=== PATIENT | female | born 1945 | race Caucasian/White ===

== ENCOUNTER → 2017-10-16 | Outpatient (CLI) | payer MEDICARE, OTHER ==
[~2017-10-16] MED LIST: ANAS1TAB34 PO; CALC-18 PO; CALC1TAB32 PO; DOC100 PO; GLU500 PO; HAWT565C PEG; IBAN150T6 PO; NAPR220C12 PO; PER PO; SIMV-49 PO; SIMV5TAB60 PO; VITA-324 PO; [UNRECOGNIZED DRUG - CODE] PO; [UNRECOGNIZED DRUG - CODE] PO
--- NOTE | 2017-10-16 15:58 | RADIOLOGY IMAGING REPORT ---
FACILITY: [facility] [place] PATIENT NAME: DIEUDONNE MCKEON : [id number] MR: [id number] V: [id number] EXAM DATE: ORDERING PHYSICIAN: CORKY SALAZAR TECHNOLOGIST: Beth Lester PROCEDURE:BILATERAL DIGITAL SCREENING MAMMOGRAM WITH CAD ASSISTED INTERPRETATION & 3D TOMOSYNTHESIS COMPARISON:Prior mammograms 10/10/16, 10/10/15, 10/06/14, 10/05/13, 10/02/12, 03/25/12. INDICATIONS:screening FINDINGS: Moderately dense fibroglandular tissue is seen throughout the breasts. The parenchymal pattern has remained stable allowing for difference in mammographic technique & patient positioning. Again notice the area of postsurgical scaring in the upper outer quadrant of the Left breast from prior lumpectomy. There is no demonstration of malignant appearing mass, malignant appearing calcifications or other secondary sign of malignancy in either breast. DIAGNOSTIC CATEGORY 2--BENIGN FINDING. RECOMMENDATIONS: ROUTINE MAMMOGRAM AND CLINICAL EVALUATION. IMPRESSION: BIRADS 2: Benign finding. No significant abnormality is seen. Dictated by: Analilia Arevalo M.D. on 10/16/2017 at 15:00 Transcribed by: JULISSA on 10/16/2017 at 15:22 Approved by: Analilia Arevalo M.D. on 10/16/2017 at 15:56 [facility]
== END ==
LOC: MAMO 01:38
PROVIDERS: ATTEND Internal Medicine Hematology
DX: Z12.31 Encounter for screening mammogram for malignant neoplasm of breast (principal)
CPT/HCPCS: 77063; 77067

== ENCOUNTER 2018-04-24 08:28 | Outpatient (RCR) | payer MEDICARE, OTHER ==
[~2018-04-24 08:28] MED LIST changes: -SIMV5TAB60 PO; +SIMV5TAB69 PO
[2018-04-24 08:33] VITALS: BP 139/82
--- NOTE | 2018-04-24 09:59 | [facility] ONCOLOGY NOTE ---
EVENT DATE: April 24, 2018 DIAGNOSES 1. Stage IA (pT1a, pN0, M0) left breast cancer. 2. Borderline hypercholesterolemia. 3. Osteopenia of the lumbar spine. CHIEF COMPLAINT The patient is here today for followup of her left breast cancer. ONCOLOGY HISTORY The patient is a very pleasant female with a history of stage IA breast cancer of the left breast, diagnosed in January,. Breast cancer was ER/ND positive, HER2/daniel 3+ by immunohistochemistry. She had a lumpectomy, followed by radiation and started endocrine therapy in May 2010 with Arimidex. Since our last office visit she had her yearly mammogram. She comes in for follow up. She is unaccompanied in the clinic. PRESENTATION Abnormal mammogram of the left breast done on 02/07/2010. DIAGNOSTIC EVALUATION On 02/16/2010 the patient had a left digital mammogram which showed two focal areas at 12 oclock position. PROCEDURES Stereotactic left breast biopsy done on 03/08/2010 and pathology came back positive for grade 2 out of 3 infiltrating ductal carcinoma completely excised. On 03/21/2010 the patient had an axillary sentinel lymph node biopsy of the left side, three lymph nodes were removed and were negative for metastasis. The patient also had left breast excision which came back positive for ductal carcinoma. Left breast excisional biopsy done 03/30/2010 came back for a biopsy cavity and negative for residual malignancy. PATHOLOGY Positive for a 0.5 cm invasive well differentiated ductal carcinoma, grade 1 out of 3 with negative margins, 3 sentinel lymph node were removed and were negative for metastasis. ER-positive, Pr-negative, HER2/daniel was 3+ by immunohistochemistry. Ki-67 was with a low expression. P53 was negative. STAGE Stage IA (pT1a, pN0, M0). TREATMENT 1. Adjuvant radiation therapy completed on 06/14/2010. The patient received 33 treatments. 2. Adjuvant hormonal therapy started on 06/22/2010. HISTORY OF PRESENT ILLNESS Patient is here today for followup of her left breast cancer, on extended adjuvant hormonal therapy with Arimidex. She is complaining of some hot flashes and some cough. She has pain in the shoulders and knees. She is weak, tired and fatigued. PAST MEDICAL HISTORY 1. New left breast cancer. 2. Borderline high cholesterol. PAST SURGICAL HISTORY 1. In November 1972: The patient had a tubal ligation. 2. In July 1998: The patient had a total hysterectomy and bilateral salpingo- oophorectomy for a fibroid and heavy bleeding. 3. In October 2005: The patient had a left hip replacement. 4. In February 2010: The patient had a left lumpectomy and left axillary sentinel lymph node biopsy. SOCIAL HISTORY The patient is . She has three children, two sons and one daughter. 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 She drinks about 12 drinks per year. She denies any abuse of tobacco or drugs. FAMILY HISTORY Mother had stomach cancer at age 72. Father had bladder cancer at 86. Fraternal grandmother had breast cancer, she does not know exactly what age. ALLERGIES NO KNOWN DRUG ALLERGIES. CURRENT MEDICATIONS 1. Anastrozole 1 mg daily. 2. Naproxen 220 mg as needed. 3. Calcium carbonate 500 mg daily. 4. Glycosamine sulfate 500 mg twice daily. 5. Vitamin D 2000 units daily. 6. Vitamin B complex one tablet daily. REVIEW OF SYSTEMS CONSTITUTIONAL: The patient has some hot flashes. HEENT: Ears: No tinnitus or hearing problem. Nose: No nasal discharge or epistaxis. Throat: No sore throat or mouth ulcers. Eyes: No diplopia or visual changes. RESPIRATORY: She has dry cough. CARDIOVASCULAR: No chest pain, orthopnea, or paroxysmal nocturnal dyspnea (PND). No edema. No palpitations. GASTROINTESTINAL: No nausea or vomiting. No diarrhea or constipation. No change in bowel movements. No heartburn or swallowing difficulties. No abdominal pain. No jaundice. No hematemesis, melena or rectal bleeding. GENITOURINARY: No hematuria or dysuria. MUSCULOSKELETAL: She has pain in the shoulders and knees. NEUROLOGICAL: No tingling or numbness in the hands or feet. No headaches or convulsions. HEMATOLOGIC/LYMPHATIC: She is weak, tired and fatigued. SKIN: No skin rash or lumps. PSYCHIATRIC: No anxiety or depression. PHYSICAL EXAMINATION GENERAL: Looks stable. Well-developed, well-nourished, and in no acute distress. VITAL SIGNS: Blood presently 139/82, pulse 66 per minute, respirations 16 per minute, temperature 97, pulse ox 94% on room air. HEENT: Head: Atraumatic. No sinus tenderness to palpation. Eyes: No icterus or conjunctivitis. Mouth and throat: No oral thrush or mucositis. NECK: Supple. No cervical or supraclavicular lymphadenopathy. LUNGS: Clear to auscultation and percussion bilaterally. HEART: Regular rate and rhythm. No gallops, murmurs, clicks or rubs. ABDOMEN: Soft and lax. No tenderness. No hepatosplenomegaly. No masses. EXTREMITIES: No cyanosis, clubbing or edema. LYMPHATICS: No peripheral lymphadenopathy. NEUROLOGICAL: Conscious, alert and oriented times three. No focal motor or sensory deficits. PSYCHIATRIC: Mood and affect appear normal. SKIN: No skin rash, bruise or purpuric eruption. DIAGNOSTIC DATA CBC showed a white count 7,000, hemoglobin 16.4, hematocrit 48.6%, platelets 269,000. Chem panel totally normal except BUN/creatinine ratio 32 and albumin/globulin ratio 2.6. CA 27-29 is normal at 26.1. He mammogram on October 16, 2017, was benign. ASSESSMENT 1. Stage IA (pT1a pN0 cM0) left breast cancer status post lumpectomy and left axillary lymph node dissection done March 21, 2010. Final pathology was positive for 0.5 cm invasive well-differentiated ductal carcinoma grade 1/3 with negative margins. Three sentinel lymph nodes were negative for metastasis. ER positive, ND negative. HER2/daniel 3+ by immunohistochemistry, which is positive. Patient finished adjuvant radiation therapy June 14, 2010. She started Arimidex as her hormonal therapy June 22, 2010, and she is tolerating treatment very well. Her breast cancer index for extended endocrine benefit showed high risk of late recurrence 8.3% between the years five to 10 with likelihood of benefit from extended endocrine therapy. Patient agreed to extend her hormonal therapy. I am planning to continue Arimidex 1 mg daily. She is due for her next mammogram September 2018. I will see her in a year with CBC, chem panel and CA 27-29. Her current CA 27-29 is normal at 26.1. 2. Osteopenia by DEXA scan. Her last DEXA scan on October 10, 2016, was stable. 3. Borderline hypercholesterolemia. PLAN 1. Continue Arimidex 1 mg daily for a total of 10 years. 2. Patient to return in one year with CBC, chemistry panel and CA 27-29. 3. Screening mammogram bilaterally, September 2018. 4. Patient to contact us for any new concern or complaints. [facility]
== END 2018-06-02 11:59 | disposition home or self-care (01) ==
LOC: ONC 08:28
PROVIDERS: ATTEND Internal Medicine Hematology
DX: Z08 Encounter for follow-up examination after completed treatment for malignant neoplasm (principal); Z85.3 Personal history of malignant neoplasm of breast; M85.80 Other specified disorders of bone density and structure, unspecified site; Z92.3 Personal history of irradiation
CPT/HCPCS: 99212

== ENCOUNTER → 2018-08-14 | Outpatient (CLI) | payer MEDICARE, OTHER ==
--- NOTE | 2018-08-14 11:04 | RADIOLOGY IMAGING REPORT ---
FACILITY: [facility] PATIENT NAME: Hue Cunha : 1945 MR: [id number] V: [id number] EXAM DATE: ORDERING PHYSICIAN: ROMELIA PRATT TECHNOLOGIST: Location: [facility] Patient: Hue Cunha : 1945 Visit/Account:[id number] Date of Sevice: 08/14/2018 KIDNEYS EXAMINATION: Renal ultrasound. History: Renal insufficiency, abnormal labs COMPARISON STUDIES: FINDINGS: Kidneys: Right kidney- 8.5 x 3.7 x 4.7 cm. This cortical thinning on the right measuring 6 mm Left kidney- 10.1 x 4.1 x 4.4 cm. The cortical thickness on the left measures 1.1 cm Uniform and symmetric blood flow in each kidney by Doppler ultrasound. Hydronephrosis: There is very mild fullness the renal collecting systems bilaterally Resistive index on the right 0.63 and on the left 0.76 Bladder: Urinary bladder prevoid volume measured 236 mL. Post void residual 22 mL. Bilateral ureter al jets are present Abdominal aorta and IVC: Aorta and IVC are patent by Doppler ultrasound. IMPRESSION: There is very mild fullness of the renal collecting systems bilaterally There is cortical thinning on the right Post void bladder residual 22 mL Report Dictated By: Analilia Arevalo MD at 08/14/2018 10:55 AM Report E-Signed By: Analilia Arevalo MD at 08/14/2018 10:58 AM WSN:[email or web address]
== END ==
LOC: US 01:26
PROVIDERS: ATTEND Family Medicine
DX: N17.9 Acute kidney failure, unspecified (principal)
CPT/HCPCS: 76705

== ENCOUNTER → 2018-11-13 | Outpatient (CLI) | payer MEDICARE, OTHER ==
--- NOTE | 2018-11-18 13:36 | RADIOLOGY IMAGING REPORT ---
FACILITY: [facility] - [place] PATIENT NAME: DIEUDONNE MCKEON : [id number] MR: [id number] V: [id number] EXAM DATE: [id number] ORDERING PHYSICIAN: CORKY SALAZAR TECHNOLOGIST: Beth Lester PROCEDURE: BILATERAL DIGITAL SCREENING MAMMOGRAM WITH CAD ASSISTED INTERPRETATION & 3D TOMOSYNTHESIS. REASON FOR STUDY: Screening. FAMILY HISTORY OF BREAST CANCER: None. BREAST PROCEDURES/TREATMENTS: Benign Stereotactic biopsy of the Right breast. Malignancy of the Left breast 2009 & 2010. Radiation therapy 2010. COMPARISON: Previous examinations from 10/16/2017 back to 10/02/2012. VIEWS OBTAINED: 2D & 3D full field CC & MLO projections. BREAST DENSITY: Scattered fibroglandular tissue. MAMMOGRAM FINDINGS: There are no mass lesions, architectural distortions, or clusters of suspicious microcalcifications to suggest a malignancy. Postoperative lumpectomy scaring change noted in the upper outer aspect of the Left breast. IMPRESSION: BIRADS 2: Benign finding. DIAGNOSTIC CATEGORY 2--BENIGN FINDING. RECOMMENDATIONS: ROUTINE MAMMOGRAM IN 1YR AND CLINICAL EVALUATION. Dictated by: Gabe Corado M.D. on 11/13/2018 at 16:30 Transcribed by: JULISSA on 11/14/2018 at 11:31 Approved by: Gabe Corado M.D. on 11/18/2018 at 13:32 [facility]
== END ==
LOC: MAMO 01:23
PROVIDERS: ATTEND Internal Medicine Hematology
DX: Z12.31 Encounter for screening mammogram for malignant neoplasm of breast (principal); Z80.3 Family history of malignant neoplasm of breast
CPT/HCPCS: 77063; 77067